=== PATIENT | female | born 1995 | race Caucasian/White ===

== ENCOUNTER 2018-12-14 09:32 | Inpatient (IN) ==
[2018-12-14] MEDS ORDERED: OXYTOCIN 30 UNITS/500 ML BAG IV PRN ×3 (12:07→21:50)
[2018-12-14] MEDS ORDERED: PENICILLIN G POTASSIUM 6 MU in DEXTROSE 5% 250 ML IV STA (12:07)
--- NOTE | 2018-12-14 12:15 | History & Physical Report ---
Date of Service December 14, 2018 Assessment & Plan (1) Prolonged , antepartum: - heart rate tracing category 1 -Jones catheter inserted for cervical ripening -We will start Pitocin per induction protocol -We will start penicillin for positive GBS -Anticipate vaginal delivery (2) Group B Streptococcus carrier state affecting : (3) Supervision of normal first : History of Present Illness Chief Complaint: Induction of labor Primary Care Provider: DANNY Mays The patient is a 23-year-old 1 para 0, with an EDC of 07 December at 41 weeks gestational age who presents today for a postdates induction. The patient has had a benign course her blood type is A-, antibody negative, she received RhoGam at 28 weeks, the patient was hepatitis B negative, rubella immune, she had a normal 1 hour Glucola at 16 weeks with an elevated 1 hour Glucola 28 weeks with a normal 2-hour glucose tolerance test, she had a positive third trimester beta strep culture. 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 Beliefs That Will Affect Care: None marital status: Current Living Situation: Spouse Other Information That Helps Us Care for You: No Feels Safe at Home: Yes Safety Concerns: Feels Safe At This Time Smoking Status: Never smoker Do You Dip or Chew Tobacco: No ; Second Hand Exposure: No ; Hx Alcohol Use: No Hx Substance Use: No Physical Exam Constitutional: WD/WN, vitals as above Respiratory: Auscultation: lungs clear to auscultation bilaterally Cardiovascular: RRR, no murmur, no edema Extremities: no calf tenderness Gastrointestinal (Abdomen): Gravid, vertex, positive heart tones, estimated weight of 8 pounds Genitourinary: Cervix: 180/-2 Procedure note: Patient placed in a dorsolithotomy position. After obtaining verbal consent a cervix is placed. A #22 Jones catheter is inserted into the cervix. Catheter inflated with 30 cc of normal saline. Speculum removed. Patient tolerated the procedure well Results & Data Vital Signs (Past 12 Hours) Vital Signs Temp Pulse Resp BP 12/14/18 11:24 103 H 136/87 12/14/18 10:42 99.5 F 103 H 20 136/87
[2018-12-14] MEDS: LACTATED RINGER'S 1,000 ML IV PRN ×2 (12:22→14:49)
[2018-12-14 12:34] LABS: Hematocrit (blood only) 36.4 % (37-47); Hemoglobin 12.6 g/dL (12.0-16.0); Mean Corpuscular Hemoglobin 33.3 pg (25-34); Mean Corpuscular Volume 96.3 fL (80-100); Platelet Count 228 K/uL (130-400); RDW Standard Deviation 49.1 fL (36.4-46.3); Red Blood Count 3.78 M/uL (4.2-5.4); White Blood Count 10.92 K/uL (4.8-10.8)
[2018-12-14 12:48] LABS: Mean Corpuscular Hgb Conc 34.6 g/dL (32-36)
[2018-12-14] MEDS ORDERED: ePHEDrine sulfate 50 MG/ML AMP ONE (14:04)
[2018-12-14] MEDS ORDERED: BUPIVACAINE 0.25% 30 ML VIAL ONE ×2 (14:04→17:20)
[2018-12-14] MEDS ORDERED: fentaNYL 2MCG/ML ROPIV 1.25MG/ML 100 ML BAG EPI ONE (14:05)
[2018-12-14] MEDS ORDERED: fentaNYL citrate 100 MCG/2 ML VIAL ONE (14:05)
[2018-12-14] MEDS ORDERED: NALOXONE HCL 1 MG in SODIUM CHLORIDE 0.9% 1000ML 1,000 ML IV PRN (14:58)
[2018-12-14] MEDS ORDERED: fentaNYL 2MCG/ML ROPIV 1.25MG/ML 100 ML BAG EPI PRN (14:58)
[2018-12-14] MEDS ORDERED: ONDANSETRON INJ 2 MG/ML 2 ML VIAL IV PRN (14:58)
[2018-12-14] MEDS ORDERED: DiphenhydrAMINE HCL 50 MG/ML VIAL IV PRN (14:58)
[2018-12-14] MEDS ORDERED: ePHEDrine sulfate 50 MG/ML AMP IV PRN (14:58)
[2018-12-14] MEDS ORDERED: NALBUPHINE HCL INJ 10 MG/ML AMP IV PRN (14:58)
[2018-12-14] MEDS ORDERED: NALOXONE HCL 0.4 MG/1 ML VIAL/CARP IV PRN (14:58)
--- NOTE | 2018-12-14 15:01 | Anesthesiology Consultation ---
Date of Service December 14, 2018 Assessment & Plan (1) Encounter for pre-operative examination: Chart Review Chart Review: Patient NOT seen in Pre Admission Testing and Acceptable Risk for Labor Epidural Consults Requested none History Height/Weight Height: 5 ft 7 in Weight: 76.204 kg Allergies Allergy/AdvReac Type Severity Reaction Status Date / Time No Known Allergies Allergy Verified 12/13/18 09:26 Medications Home Medications Medication Instructions Recorded Confirmed Last Taken vit-iron fum-folic ac 1 tab PO DAILY 12/14/18 12/14/18 12/14/18 08:00 [ Vitamin] Active Medications Generic Name Dose Route Start Last Admin Trade Name Freq PRN Reason Stop Dose Admin Lactated Ringer's 1,000 mls @ 125 mls/hr 12/14/18 12:07 12/14/18 14:49 Lr IV 12/16/18 12:06 125 mls/hr .Q8H PRN Administration L&D Protocol Protocol Oxytocin 30 units in 500 mls @ 7 mls/hr 12/14/18 12:09 12/14/18 14:41 Pitocin IV 12/16/18 12:08 0.42 units/hr .Q24H PRN 7 mls/hr Labor Induction/Augmentation Titration Protocol 0.42 UNITS/HR Past Medical History Medical History History of varicella vaccination Exercise / Class Metabolic Activity II 4-5 Yardwork/Stairs/Walk up hill Past Family History Family History Grandfather No problems noted. Father Hypertension Grandmother (Maternal) Ovarian cancer Mother Thyroid disease Past Surgical History Surgical History No pertinent past surgical history Past Anesthesia History No Hx of Anesthesia Complications and No Family Hx of Anesthesia Complications History of PONV No Hx of PONV and No Hx of Motion Sickness Social History Smoking Status: Never smoker Do You Dip or Chew Tobacco: No Hx Alcohol Use: No Hx Substance Use: No substance use type: does not use Physical Exam Vital Signs Last Vital Signs Temp 36.9 C 12/14/18 14:25 Pulse 89 12/14/18 14:54 Resp 18 12/14/18 14:25 BP 132/79 12/14/18 14:52 Pulse Ox 100 12/14/18 14:54 Testing Laboratory Results 12/14/18 12:17
[2018-12-14] MEDS: PENICILLIN G POTASSIUM 3 MU in DEXTROSE 5% 100 ML IV PRN ×2 (16:19→20:32)
--- NOTE | 2018-12-14 19:23 | Labor Progress Brief Note ---
Date of Service December 14, 2018 Subjective Reason For Note: Routine Evaluation Comfortable with epidural, pressure with contractions Assessment & Plan (1) Prolonged , antepartum: - tracing Cat II - will begin 2nd stage Physical Exam Genitourinary: Complete/(+)1-(+)2, AROM clear Results & Data Vital Signs (Past 12 Hours) Vital Signs Temp Pulse Resp BP Pulse Ox 12/14/18 19:16 119 H 100 12/14/18 19:11 97 H 98 12/14/18 19:06 88 99 12/14/18 19:02 89 126/66 12/14/18 19:01 83 99 12/14/18 18:56 92 H 99 12/14/18 18:51 99.9 F H 84 20 136/65 99 12/14/18 18:44 90 98 12/14/18 18:39 83 98 12/14/18 18:34 78 99 12/14/18 18:32 81 120/59 L 12/14/18 18:29 81 98 12/14/18 18:24 89 99 12/14/18 18:19 89 99 12/14/18 18:17 86 121/62 12/14/18 18:14 83 99 12/14/18 18:09 87 99 12/14/18 18:04 86 100 12/14/18 18:00 115 H 156/60 H 12/14/18 17:59 89 99 12/14/18 17:58 93 H 120/61 12/14/18 17:56 90 123/66 12/14/18 17:54 86 127/65 98 12/14/18 17:52 93 H 130/67 12/14/18 17:50 100 H 123/71 12/14/18 17:49 100 H 99 12/14/18 17:48 90 125/78 12/14/18 17:46 86 121/65 12/14/18 17:44 90 133/67 99 12/14/18 17:42 81 112/80 12/14/18 17:40 90 115/65 12/14/18 17:39 89 98 12/14/18 17:38 101 H 121/70 12/14/18 17:36 90 127/68 12/14/18 17:34 78 123/70 99 12/14/18 17:32 90 122/67 12/14/18 17:30 91 H 125/69 12/14/18 17:29 89 98 12/14/18 17:28 93 H 124/68 12/14/18 17:27 99.0 F 22 12/14/18 17:25 90 139/75 12/14/18 17:24 89 98 12/14/18 17:23 96 H 123/72 12/14/18 17:19 86 98 12/14/18 17:14 100 H 99 12/14/18 17:09 82 99 12/14/18 17:08 87 127/84 12/14/18 17:04 96 H 98 12/14/18 16:59 86 99 12/14/18 16:54 85 99 12/14/18 16:52 92 H 128/67 12/14/18 16:49 83 99 12/14/18 16:44 83 98 12/14/18 16:39 72 98 12/14/18 16:37 82 119/62 12/14/18 16:34 71 98 12/14/18 16:29 68 98 12/14/18 16:24 89 99 12/14/18 16:23 102 H 119/80 12/14/18 16:19 90 99 12/14/18 16:14 77 100 12/14/18 16:09 73 99 12/14/18 16:06 87 124/74 12/14/18 16:04 93 H 20 117/71 99 12/14/18 16:02 92 H 124/72 12/14/18 16:00 85 128/73 12/14/18 15:59 80 100 12/14/18 15:58 94 H 125/77 12/14/18 15:56 75 125/75 12/14/18 15:54 83 127/74 98 12/14/18 15:52 88 127/74 12/14/18 15:50 79 123/67 12/14/18 15:49 83 100 12/14/18 15:48 84 123/73 12/14/18 15:46 85 124/71 12/14/18 15:44 90 131/72 99 12/14/18 15:42 81 135/77 12/14/18 15:40 87 113/64 12/14/18 15:39 92 H 99 12/14/18 15:38 85 117/64 12/14/18 15:36 99.0 F 82 16 126/65 12/14/18 15:34 84 129/68 99 12/14/18 15:32 79 132/69 12/14/18 15:30 86 123/64 12/14/18 15:29 95 H 100 12/14/18 15:28 89 126/68 12/14/18 15:26 75 112/68 12/14/18 15:24 93 H 118/70 99 12/14/18 15:22 93 H 117/68 12/14/18 15:20 96 H 122/76 12/14/18 15:19 79 100 12/14/18 15:18 88 117/71 12/14/18 15:16 72 125/78 12/14/18 15:14 86 99 12/14/18 15:09 81 100 12/14/18 15:06 80 137/78 12/14/18 15:04 90 100 12/14/18 14:59 79 100 12/14/18 14:54 89 100 12/14/18 14:52 77 132/79 12/14/18 14:49 76 99 12/14/18 14:44 72 100 12/14/18 14:43 78 133/82 12/14/18 14:39 92 H 99 12/14/18 14:31 78 129/82 12/14/18 14:25 98.4 F 18 12/14/18 11:35 99.5 F 18 12/14/18 11:24 103 H 136/87 12/14/18 10:42 99.5 F 103 H 20 136/87
--- NOTE | 2018-12-14 21:31 | Anesthesia Procedure Note ---
Date of Service December 14, 2018 Anesthesia Post Epidural Note Vital Signs Vital Signs: Temp Pulse Resp BP Pulse Ox 36.9 C 101 H 18 131/70 90 12/14/18 19:00 12/14/18 21:23 12/14/18 19:00 12/14/18 21:23 12/14/18 21:21 Pain Intensity Abdomen: Pain Intensity: 0 Notes Mental Status: alert / awake / arousable and participated in evaluation Patient Amnestic to Procedure: No Nausea / Vomiting: adequately controlled Pain: adequately controlled Airway Patency, RR, SpO2: stable & adequate BP & HR: stable & adequate Hydration State: stable & adequate Neuraxial Anesthesia: was administered and sensory block is resolving Anesthetic Complications: no major complications apparent and Pt Satisfied with anesthetic care Epidural: Removed without complications and With tip intact
--- NOTE | 2018-12-14 21:33 | Delivery Summary ---
Vaginal Delivery Summary Date of Service December 14, 2018 Findings: Viable female infant with Apgars of 8 and 9. Baby delivered by vacuum extraction for profuse vaginal maternal bleeding. Baby delivered over midline episiotomy, with third-degree extension. Placenta delivered spontaneously. Left sulcus tear noted. Lacerations, extensions, and midline episiotomy repaired in routine fashion. Estimated blood loss 500 cc. Labor Note: The patient is a 23-year-old 1 para 0, with an EDC of 07 December at 41 weeks gestational age who presents today for a postdates induction. The patient has had a benign course her blood type is A-, antibody negative, she received RhoGam at 28 weeks, the patient was hepatitis B negative, rubella immune, she had a normal 1 hour Glucola at 16 weeks with an elevated 1 hour Glucola 28 weeks with a normal 2-hour glucose tolerance test, she had a positive third trimester beta strep culture. Because of the positive GBS status, the patient was started on penicillin, 6,000,000 unit loading dose, and 3,000,000 units every 4 hours until delivery. Upon admission the patient was 1 cm dilated 80% effaced and -2 station. A #22 Jones catheter was threaded into the cervix and insufflated with 30 cc of normal saline. Pitocin per induction protocol was initiated. Patient progressed into a regular labor pattern. The cervical Jones dislodged spontaneously and the patient was found to be 4 cm. Patient became uncomfortable, anesthesia was consulted and an epidural was placed. The patient progressed to full dilatation. She had artificial rupture of her membranes, with clear fluid. Patient began her second stage. She pushed for approximately hour and half and then began to develop profuse vaginal bleeding from a presumed vaginal tear. Because of the heavy vaginal bleeding, verbal consent was obtained for vacuum extraction. Over the next 3 contractions the baby was delivered over a midline episiotomy with third-degree extension. Cord was clamped and cut. Cord gases and cord blood samples were obtained. Placenta delivered spontaneously. Inspection of the perineum showed a left sulcus tear with active bleeding. The sulcus tear was repaired with running and interrupted 2-0 Vicryl sutures. Third-degree extension was noted. The sphincter muscle was reapproximated with 3 layers of 2-0 Vicryl. The episiotomy was then repaired with 4-0 and 2-0 Vicryl in a routine fashion. Estimated blood loss was 500 cc. Sponge and needle count was correct.
[2018-12-14 21:41] LABS: Base Excess Cord Arterial Bld -5.8 mEq/L (-9-1.8); CO2 Cord Arterial Blood 57 mmHg (39.1-73.5); HCO3 Cord Arterial Blood 23 mmol/L (19.7-28.5); PO2 Cord Arterial Blood 20.7 % (4.1-31.7); pH Cord Arterial Blood 7.22 (7.1-7.38)
[2018-12-14 21:45] LABS: Base Excess Cord Venous Blood -4.4 mEq/L (-7.7-1.9); Cord Venous Blood HCO3 22 mmol/L (18.4-26.8); Cord Venous Blood PCO2 47 mmHg (30.4-57.2); Cord Venous Blood PO2 34 mmHg (14.1-43.3); O2 Saturation Cord Venous Bld 71.3 % (<68); Oxygen Sat Cord Arterial Blood < 60.0 % (<60)
[2018-12-14] MEDS ORDERED: BENZOCAINE 20% AER SPR 82.5 GM CAN EXT PRN (21:50)
[2018-12-14] MEDS ORDERED: DIPHTHERIA/TETANUS/PERTUSSIS 0.5 ML SYR/VIAL IM ONE (21:50)
[2018-12-14] MEDS ORDERED: BISACODYL 10 MG SUPP PR PRN (21:50)
[2018-12-14] MEDS ORDERED: ACETAMINOPHEN 325 MG TAB PO PRN (21:50)
[2018-12-14] MEDS ORDERED: ACETAMINOPHEN W/CODEINE #3 1 TAB PO PRN (21:50)
[2018-12-14] MEDS ORDERED: SUPERCREAM 0.870% 15 GM JAR EXT PRN (21:50)
[2018-12-14] MEDS ORDERED: HYDROCORTISONE ACETATE 25 MG SUPP PR PRN (21:50)
[2018-12-14] MEDS: IBUPROFEN 600 MG TAB PO PRN (23:17)
[2018-12-15] MEDS: IBUPROFEN 600 MG TAB PO PRN ×3 (05:36→21:23)
--- NOTE | 2018-12-15 07:02 | Obstetrical Progress Note ---
Date of Service <Baldomero Montielmargaret - Last Filed: 12/15/18 07:04> December 15, 2018 Assessment & Plan <Baldomero MontielnDO - Last Filed: 12/15/18 07:04> (1) Prolonged , antepartum: -PPD#1 -Vitals reviewed, WNL (Tmax 37) - GBS +, Blood Type A- - ?Rhogam if needed. - Clinically stable. - Feels well today. Eating well, voiding well, ambulating well. - Pain well controlled. - Routine post- care - Patient had a 3rd degree laceration during delivery that was repaired in the usual fashion. - Roughly 500cc blood loss noted during delivery, will monitor Hgb (labs pending this AM). - Questions answered this AM. Day #:: 1 Subjective <Baldomero Montielmargaret - Last Filed: 12/15/18 07:04> Ambulation: ambulating normally Voiding: no voiding problems Passing Gas:: No Diet Tolerance:: regular diet Lochia:: Moderate Feeding Type:: breast feeding Current Pain Level(1-10): 1 (improves with medication) Patient is a 23 PPD#1. Patient states that she is feeling well today and that her pain is well controlled. She has no other complaints at this time. Constitutional: no fever and no chills Respiratory: no cough, no dyspnea and no wheezing Cardiovascular: no chest pain, no dyspnea, no palpitations, no edema and no calf pain Breast: no breast pain Gastrointestinal: no abdominal pain, no nausea and no vomiting Genitourinary (female): no dysuria and no difficulty urinating Neurologic: no headache(s) Physical Exam <Baldomero Montielmargaret Mally Last Filed: 12/15/18 07:04> Constitutional WD/WN, vitals as above Respiratory normal respiratory effort, lungs clear to auscultation Cardiovascular Rate/Rhythm: regular rate and regular rhythm Heart Sounds: normal S1 and normal S2; no click, no gallop, no murmur and no cardiac rub Extremities: no calf tenderness and no edema Gastrointestinal (Abdomen) Inspection/Auscultation: abdomen normal to inspection and normal bowel sounds Percussion/Palpation: abdomen soft; abdomen nontender Genitourinary OB Exam Abdomen: + fundal height Fundus: + firm and + relation to umbilicus (3cm below); not tender and not boggy Results & Data <Baldomero Montieln, DO - Last Filed: 12/15/18 07:04> Vital Signs (Past 12 Hours) Vital Signs Temp Pulse Pulse Resp BP BP Pulse Ox 12/15/18 04:30 37 C 79 18 115/75 12/14/18 23:50 37 C 78 18 112/74 12/14/18 23:31 37.0 C 117 H 18 127/63 12/14/18 23:23 117 H 117/62 12/14/18 23:08 105 H 16 132/62 12/14/18 22:53 89 135/61 12/14/18 22:38 112 H 137/60 12/14/18 22:23 108 H 18 129/71 12/14/18 22:08 37.0 C 93 H 18 113/61 12/14/18 21:53 109 H 18 123/60 12/14/18 21:46 101 H 16 122/71 12/14/18 21:23 101 H 16 131/70 12/14/18 21:21 89 90 12/14/18 21:16 88 99 12/14/18 21:11 93 H 18 99 12/14/18 21:06 96 H 100 12/14/18 21:01 114 H 97 12/14/18 21:00 113 H 92 12/14/18 20:57 36.9 C 78 18 122/70 12/14/18 20:56 80 100 12/14/18 20:54 111 H 93 12/14/18 20:51 105 H 98 12/14/18 20:46 121 H 99 12/14/18 20:42 96 H 129/74 12/14/18 20:41 107 H 99 12/14/18 20:36 105 H 95 12/14/18 20:31 101 H 100 12/14/18 20:28 92 H 127/68 12/14/18 20:26 91 H 99 12/14/18 20:21 87 99 12/14/18 20:16 96 H 98 12/14/18 20:14 111 H 118/89 12/14/18 20:11 115 H 95 12/14/18 20:06 102 H 99 12/14/18 20:01 105 H 98 12/14/18 19:57 101 H 127/69 12/14/18 19:56 127 H 100 12/14/18 19:51 117 H 99 12/14/18 19:46 119 H 95 12/14/18 19:42 111 H 132/75 12/14/18 19:41 138 H 99 12/14/18 19:36 127 H 97 12/14/18 19:31 129 H 98 12/14/18 19:26 128 H 99 12/14/18 19:21 135 H 99 12/14/18 19:16 119 H 100 12/14/18 19:11 97 H 98 12/14/18 19:06 88 99 12/14/18 19:02 89 126/66 12/14/18 19:01 83 99 12/14/18 19:00 36.9 C 18 Laboratory Results Abnormal lab results 12/14/18 12/14/18 Range/Units 12:17 20:53 WBC 10.92 H (4.8-10.8) K/uL RBC 3.78 L (4.2-5.4) M/uL Hct 36.4 L (37-47) % RDW Std Deviation 49.1 H (36.4-46.3) fL Cord VBG O2 Sat 71.3 H (<68) % Medications Administered Current Inpatient Medications Acetaminophen (Tylenol) 650 mg PO Q6H PRN PRN Reason: Pain/MOELLER/Fever Stop: 01/13/19 21:49 Acetaminophen/Codeine Phosphate (Tylenol W/Codeine #3) 1 - 2 tab PO Q4H PRN PRN Reason: Pain not controlled with... Stop: 01/13/19 21:49 Benzocaine (Dermoplast Pain Relieving [place]) 1 appln EXT PRN PRN PRN Reason: Perineal Discomfort Stop: 01/13/19 21:49 Bisacodyl (Dulcolax) 5 mg PO 1999 [facility] Stop: 12/15/18 20:01 Bisacodyl (Dulcolax) 10 mg [place] DAILY PRN PRN Reason: No BM on 2nd post- day Stop: 01/13/19 21:49 Cocaine HCl (Supercream 0.870%) 1 gm EXT BID PRN PRN Reason: Hemorrhoidal Inflammation Stop: 12/28/18 21:49 Docusate Sodium (Colace) 100 mg PO DAILY@ [facility] Stop: 01/14/19 07:59 Hydrocortisone (Anusol Hc) 25 mg [place] BID PRN PRN Reason: Hemorrhoidal Inflammation Stop: 01/13/19 21:49 Oxytocin (Pitocin) 30 units in 500 mls @ 333.333 mls/hr IV .Q1H30M PRN; Protocol PRN Reason: Bleeding Control Stop: 01/13/19 21:49 Ibuprofen (Motrin) 600 mg PO Q4H PRN PRN Reason: Pain/MOELLER/Cramping/Fever Stop: 01/13/19 21:25 Last Admin: 12/15/18 05:36 Dose: 600 mg Documented by: Prentayler Multivit/Net M[employer] Developer/Iron/Folic Ac ( Vitamin) 1 tab PO DAILY@08 [facility] Stop: 01/14/19 07:59 Senna/Docusate Sodium (Senokot S) 1 tab PO QAM [facility] Stop: 01/14/19 08:59 <Ino Sutton Jr, MD, FACOG - Last Filed: 12/15/18 07:46> Co-Signing Physician Notes Resident Physician Supervision Note: I was present with Dr. Gardner during the history and exam. I discussed the case with the resident and agree with the findings and plan as documented in the note. Any exceptions or clarifications are listed here: Discussed delivery and care. Documented By: Ino Sutton Jr, MD, FACOG Resident Activity Tracking <Baldomero Bonilla DO - Last Filed: 12/15/18 07:04> Resident Involvement: Resident Care Provided Care Provided: OB Delivery
[2018-12-15 07:20] LABS: Hematocrit (blood only) 28.5 % (37-47); Hemoglobin 9.7 g/dL (12.0-16.0); Mean Corpuscular Volume 96.9 fL (80-100); Mean Platelet Volume 10.3 fL (7.4-10.4); Platelet Count 210 K/uL (130-400); RDW Coefficient of Variation 14.2 % (11.5-14.5); RDW Standard Deviation 50.6 fL (36.4-46.3); Red Blood Count 2.94 M/uL (4.2-5.4); White Blood Count 16.84 K/uL (4.8-10.8)
[2018-12-15] MEDS: PRENATAL VITAMIN 1 TAB PO SCH (08:37)
[2018-12-15] MEDS: DOCUSATE SODIUM/SENNA 50/8.6MG TAB PO SCH (08:37)
[2018-12-15] MEDS: DOCUSATE SODIUM 100 MG CAP PO SCH ×2 (08:37→21:23)
[2018-12-15] MEDS ORDERED: BISACODYL 5 MG TABEC PO SCH (20:00)
--- NOTE | 2018-12-16 06:27 | Obstetrical Progress Note ---
Date of Service <Baldomero Bonilla DO - Last Filed: 12/16/18 06:28> December 16, 2018 Assessment & Plan <Baldomero Bonilla DO - Last Filed: 12/16/18 06:28> (1) Prolonged , antepartum: -PPD#2 -Vitals reviewed, WNL (Tmax 37.1) - GBS +, Blood Type A- - Clinically stable. - Feels well today. Eating well, voiding well, ambulating well. - Pain well controlled. - Routine post- care - Patient had a 3rd degree laceration during delivery that was repaired in the usual fashion. - Questions answered this AM. - Counseled on discharge, follow up, and medications. Day #:: 2 Subjective <Baldomero MontielnDO - Last Filed: 12/16/18 06:28> Ambulation: ambulating normally Voiding: no voiding problems Passing Gas:: Yes Diet Tolerance:: regular diet Lochia:: Moderate Feeding Type:: breast feeding Current Pain Level(1-10): 2 (improves with analgesics) Patient is a 23 PPD#2. Patient states that she is feeling well today and that her pain is well controlled. She has no other complaints at this time. Constitutional: no fever and no chills Respiratory: no cough, no dyspnea and no wheezing Cardiovascular: no chest pain, no dyspnea, no palpitations, no edema and no calf pain Breast: + breast pain (nipple pain with breast feeding) Gastrointestinal: no abdominal pain, no nausea and no vomiting Genitourinary (female): no dysuria and no difficulty urinating Neurologic: no headache(s) Physical Exam <Baldomero Montielmargaret DO Bal Last Filed: 12/16/18 06:28> Constitutional WD/WN, vitals as above Respiratory normal respiratory effort, lungs clear to auscultation Cardiovascular Rate/Rhythm: regular rate and regular rhythm Heart Sounds: normal S1 and normal S2; no click, no gallop, no murmur and no cardiac rub Extremities: no calf tenderness and no edema Gastrointestinal (Abdomen) Inspection/Auscultation: abdomen normal to inspection and normal bowel sounds Percussion/Palpation: abdomen soft; abdomen nontender Genitourinary OB Exam Abdomen: + fundal height Fundus: + firm and + relation to umbilicus (2cm below); not tender and not boggy Results & Data <Baldomero Montieln, DO - Last Filed: 12/16/18 06:28> Vital Signs (Past 12 Hours) Vital Signs Temp Pulse Resp BP Pulse Ox 12/16/18 01:16 36.6 C 84 16 109/67 97 12/15/18 19:10 37.1 C 88 18 113/73 Laboratory Results Abnormal lab results 12/15/18 Range/Units 06:35 WBC 16.84 H (4.8-10.8) K/uL RBC 2.94 L (4.2-5.4) M/uL Hgb 9.7 L (12.0-16.0) g/dL Hct 28.5 L (37-47) % RDW Std Deviation 50.6 H (36.4-46.3) fL Medications Administered Current Inpatient Medications Acetaminophen (Tylenol) 650 mg PO Q6H PRN PRN Reason: Pain/MOELLER/Fever Stop: 01/13/19 21:49 Acetaminophen/Codeine Phosphate (Tylenol W/Codeine #3) 1 - 2 tab PO Q4H PRN PRN Reason: Pain not controlled with... Stop: 01/13/19 21:49 Benzocaine (Dermoplast Pain Relieving [place]) 1 appln EXT PRN PRN PRN Reason: Perineal Discomfort Stop: 01/13/19 21:49 Bisacodyl (Dulcolax) 10 mg [place] DAILY PRN PRN Reason: No BM on 2nd post- day Stop: 01/13/19 21:49 Cocaine HCl (Supercream 0.870%) 1 gm EXT BID PRN PRN Reason: Hemorrhoidal Inflammation Stop: 12/28/18 21:49 Docusate Sodium (Colace) 100 mg PO DAILY@08,21 [facility] Stop: 01/14/19 07:59 Last Admin: 12/15/18 21:23 Dose: 100 mg Documented by: Hydrocortisone (Anusol Hc) 25 mg [place] BID PRN PRN Reason: Hemorrhoidal Inflammation Stop: 01/13/19 21:49 Oxytocin (Pitocin) 30 units in 500 mls @ 333.333 mls/hr IV .Q1H30M PRN; Protocol PRN Reason: Bleeding Control Stop: 01/13/19 21:49 Ibuprofen (Motrin) 600 mg PO Q4H PRN PRN Reason: Pain/MOELLER/Cramping/Fever Stop: 01/13/19 21:25 Last Admin: 12/15/18 21:23 Dose: 600 mg Documented by: Maria Eugeniaat Multivit/[place]/Iron/Folic Ac ( Vitamin) 1 tab PO DAILY@08 [facility] Stop: 01/14/19 07:59 Last Admin: 12/15/18 08:37 Dose: 1 tab Documented by: Senna/Docusate Sodium (Senokot S) 1 tab PO QAM [facility] Stop: 01/14/19 08:59 Last Admin: 12/15/18 08:37 Dose: 1 tab Documented by: <Cheryl Burgos MD, FACOG - Last Filed: 12/16/18 07:43> Co-Signing Physician Notes Resident Physician Supervision Note: I interviewed and examined the patient. Discussed with Dr. Bonilla and agree with findings and plan as documented in the note. Any exceptions or clarifications are listed here: Doing well. Routine care. d/c today , instructions given. Documented By: Cheryl Burgos MD, FACOG Resident Activity Tracking <Baldomero Bonilla DO - Last Filed: 12/16/18 06:28> Resident Involvement: Resident Care Provided Care Provided: OB Delivery
[2018-12-16 06:35] LABS: Hematocrit (blood only) 26.7 % (37-47)
[2018-12-16] MEDS: DOCUSATE SODIUM 100 MG CAP PO SCH (08:11)
[2018-12-16] MEDS: PRENATAL VITAMIN 1 TAB PO SCH (08:11)
[2018-12-16] MEDS: DOCUSATE SODIUM/SENNA 50/8.6MG TAB PO SCH (08:18)
--- NOTE | 2018-12-18 09:12 | Discharge Summary ---
Date of Service December 18, 2018 Admission HPI Per Admitting Provider The patient is a 23-year-old 1 para 0, with an EDC of 07 December at 41 weeks gestational age who presents today for a postdates induction. The patient has had a benign course her blood type is A-, antibody negative, she received RhoGam at 28 weeks, the patient was hepatitis B negative, rubella immune, she had a normal 1 hour Glucola at 16 weeks with an elevated 1 hour Glucola 28 weeks with a normal 2-hour glucose tolerance test, she had a positive third trimester beta strep culture. Admission Exam (Per Admitting) Constitutional WD/WN, vitals as above Respiratory Auscultation: lungs clear to auscultation bilaterally Cardiovascular RRR, no murmur, no edema Extremities: no calf tenderness Genitourinary 1 cm / 80% effaced/-2 station Discharge Data Consultations 12/14/18 12:07 Consult Anesthesiology Stat Hospital Course (1) Prolonged , antepartum: Because of the positive GBS status, the patient was started on penicillin, 6,000,000 unit loading dose, and 3,000,000 units every 4 hours until delivery. Upon admission the patient was 1 cm dilated 80% effaced and -2 station. A #22 Jones catheter was threaded into the cervix and insufflated with 30 cc of normal saline. Pitocin per induction protocol was initiated. Patient progressed into a regular labor pattern. The cervical Jones dislodged spontaneously and the patient was found to be 4 cm. Patient became uncomfortable, anesthesia was co nsulted and an epidural was placed. The patient progressed to full dilatation. She had artificial rupture of her membranes, with clear fluid. Patient began her second stage. She pushed for approximately hour and half and then began to develop profuse vaginal bleeding from a presumed vaginal tear. Because of the heavy vaginal bleeding, verbal consent was obtained for vacuum extraction. Over the next 3 contractions the baby was delivered over a midline episiotomy with third-degree extension. Cord was clamped and cut. Cord gases and cord blood samples were obtained. Placenta delivered spontaneously. Inspection of the perineum showed a left sulcus tear with active bleeding. The sulcus tear was repaired with running and interrupted 2-0 Vicryl sutures. Third-degree extension was noted. The sphincter muscle was reapproximated with 3 layers of 2-0 Vicryl. The episiotomy was then repaired with 4-0 and 2-0 Vicryl in a routine fashion. Estimated blood loss was 500 cc. Sponge and needle count was correct. During the the patient did well H&H came back at 927 which was consistent with the blood loss from the delivery. The patient was discharged home on the second day with routine discharge instructions. She will follow-up in the office in 6 weeks time for a post check, but as always she is been instructed to call with any questions p andrialems or difficulties.
== END 2018-12-16 15:35 | disposition home or self-care (01) | DRG 768 ==
LOC: 4S1 11:14 → 4S2 23:45

== ENCOUNTER 2021-09-03 03:54 | Inpatient (IN) ==
[2021-09-03] MEDS ORDERED: OXYTOCIN 30 UNITS/500 ML BAG IV PRN ×3 (08:15→14:57)
[2021-09-03 08:43] LABS: Hematocrit (blood only) 37.1 % (37-47); Hemoglobin 12.9 g/dL (12.0-16.0); Mean Corpuscular Hemoglobin 33.5 pg (25-34); Mean Corpuscular Hgb Conc 34.8 g/dL (32-36); Mean Corpuscular Volume 96.4 fL (80-100); Mean Platelet Volume 10.8 fL (7.4-10.4); Platelet Count 198 K/uL (130-400); RDW Coefficient of Variation 13.6 % (11.5-14.5); RDW Standard Deviation 47.6 fL (36.4-46.3); Red Blood Count 3.85 M/uL (4.2-5.4)
[2021-09-03] MEDS: LACTATED RINGER'S 1,000 ML IV PRN ×2 (09:03→11:01)
[2021-09-03] MEDS ORDERED: FLUoxetine HCL 20 MG CAP PO ONE (09:55)
[2021-09-03] MEDS ORDERED: ePHEDrine sulfate 50 MG/ML AMP ONE (10:22)
[2021-09-03] MEDS ORDERED: fentaNYL citrate 100 MCG/2 ML VIAL ONE (10:23)
[2021-09-03] MEDS ORDERED: BUPIVACAINE 0.25% 30 ML VIAL ONE (10:23)
[2021-09-03] MEDS ORDERED: SODIUM CHLORIDE 0.9% INJ 10 ML VIAL ONE (10:23)
[2021-09-03] MEDS ORDERED: fentaNYL 2MCG/ML ROPIVACAINE 1.25MG/ML 100 ML BAG EPI ONE (10:24)
[2021-09-03] MEDS ORDERED: fentaNYL 2MCG/ML ROPIVACAINE 1.25MG/ML 100 ML BAG EPI PRN (10:50)
[2021-09-03] MEDS ORDERED: ePHEDrine sulfate 50 MG/ML AMP IV PRN (10:50)
[2021-09-03] MEDS ORDERED: diphenhydrAMINE 50 MG/ML VIAL IV PRN (10:50)
[2021-09-03] MEDS ORDERED: NALOXONE HCL 0.4 MG/1 ML VIAL/CARP IV PRN (10:50)
[2021-09-03] MEDS ORDERED: NALOXONE HCL 1 MG in SODIUM CHLORIDE 0.9% 1000ML 1,000 ML IV PRN (10:50)
[2021-09-03] MEDS ORDERED: NALBUPHINE HCL INJ 10 MG/ML AMP IV PRN (10:50)
--- NOTE | 2021-09-03 10:50 | Anesthesiology Consultation ---
Date of Service September 03, 2021 Assessment & Plan ASA ASA3 Proposed Anesthesia Anesthesia Type: Labor Epidural Risk / Benefits Reviewed With: PT / POA / Parent / Guardian, Accepts Plan and Informed Consent Obtained History Height/Weight Height: 5 ft 6 in Weight: 70.76 kg Allergies Allergy/AdvReac Type Severity Reaction Status Date / Time No Known Allergies Allergy Verified 09/03/21 09:35 Medications Home Medications Medication Instructions Recorded Confirmed Last Taken prenat.vits,wesley,fno-uebn-rzrxc 1 tab PO DAILY 02/01/19 09/03/21 09/02/21 08:00 fluoxetine 20 mg capsule 20 mg PO DAILY 01/15/21 09/03/21 09/02/21 08:00 ferrous sulfate 325 mg (65 mg 325 mg PO DAILY 06/24/21 09/03/21 09/02/21 08:00 iron) tablet Active Medications Generic Name Dose Route Start Last Admin Trade Name Freq PRN Reason Stop Dose Admin Oxytocin 30 units in 500 mls @ 3 mls/hr 09/03/21 08:15 09/03/21 09:35 Pitocin IV 09/05/21 08:14 0.18 units/hr .Q24H PRN 3 mls/hr Labor Induction/Augmentation Titration Protocol 0.18 UNITS/HR Lactated Ringer's 1,000 mls @ 125 mls/hr 09/03/21 08:15 09/03/21 10:12 Lr IV 09/05/21 08:14 999 mls/hr .Q8H PRN Infusion L&D Protocol Protocol Past Medical History Medical History History of varicella vaccination Exercise / Class Metabolic Activity II 4-5 Yardwork/Stairs/Walk up hill Past Family History Family History Grandfather No problems noted. Father Hypertension Grandmother (Maternal) Ovarian cancer Mother Thyroid disease Past Surgical History Surgical History S/P wisdom tooth extraction Past Anesthesia History No Hx of Anesthesia Complications and No Family Hx of Anesthesia Complications History of PONV No Hx of PONV and No Hx of Motion Sickness Social History Smoking Status: Never smoker Do You Dip or Chew Tobacco: No Hx Alcohol Use: No Hx Substance Use: No substance use type: does not use Review of Systems denies fever/cough/ colds/ chest pain/ SOB/ JEANNIE denies JEANNIE Physical Exam Vital Signs Last Vital Signs Temp 37.0 C 09/03/21 07:52 Pulse 76 09/03/21 10:43 Resp 18 09/03/21 07:52 BP 117/72 09/03/21 10:08 Pulse Ox 99 09/03/21 10:43 ENMT Mouth: no TMJ abnormality and no dentition abnormality Thyromental Distance: > or= 3.5 Finger Breadths Mallampati Class: II Neck neck extension not limited Respiratory normal respiratory effort; no respiratory distress Auscultation: lungs clear to auscultation bilaterally Cardiovascular Rate/Rhythm: regular rate and regular rhythm Neurologic moves all extremities Psychiatric Orientation: alert and oriented x 3 Testing Laboratory Results 09/03/21 08:23
--- NOTE | 2021-09-03 14:37 | Delivery Summary ---
Vaginal Delivery Summary Date of Service September 03, 2021 Vaginal Delivery Summary Postdates induction COVID-negative group B strep negative patient had a cervical Jones placed by Dr. Vargas last night and Pitocin was started she received an epidural rupture of membranes and then delivered a baby vaginally in occiput anterior position fluid was clear there was a tight nuchal cord that was clamped and cut after delivery of the head mouth and then nares suctioned baby was delivered with gentle traction live female baby did require some initial resuscitation but then responded nicely to this. Placenta was removed with gentle traction IV Pitocin was started uterine tone improved second-degree tear repaired with 3-0 Vicryl spongecounts correct rectal exam negative for defects or sutures estimated blood loss 150 mL
[2021-09-03] MEDS ORDERED: ACETAMINOPHEN 325 MG TAB PO PRN (14:57)
[2021-09-03] MEDS ORDERED: BENZOCAINE 20% AER SPR 82.5 GM CAN EXT PRN (14:57)
[2021-09-03] MEDS ORDERED: HYDROCORTISONE ACETATE 25 MG SUPP PR PRN (14:57)
[2021-09-03] MEDS ORDERED: bisacodyL 10 MG SUPP PR PRN (14:57)
[2021-09-03] MEDS ORDERED: oxyCODONE/ACETAMINOPHEN 5mg/325mg TAB PO PRN (14:57)
[2021-09-03 15:00] LABS: Cord Venous Blood HCO3 27 mmol/L (18.4-26.8); Cord Venous Blood PCO2 56 mmHg (30.4-57.2); Cord Venous Blood PO2 17 mmHg (14.1-43.3)
[2021-09-03 15:04] LABS: Base Excess Cord Arterial Bld -0.6 mEq/L (-9-1.8); CO2 Cord Arterial Blood 66 mmHg (39.1-73.5); HCO3 Cord Arterial Blood 29 mmol/L (19.7-28.5); PO2 Cord Arterial Blood 11 mmHg (4.1-31.7); pH Cord Arterial Blood 7.25 (7.1-7.38)
[2021-09-03 15:07] LABS: O2 Saturation Cord Venous Bld < 60.0 % (<68); Oxygen Sat Cord Arterial Blood < 60.0 % (<60)
--- NOTE | 2021-09-03 16:38 | Anesthesia Procedure Note ---
Date of Service September 03, 2021 Anesthesia Post Epidural Note Vital Signs Vital Signs: Temp Pulse Resp BP Pulse Ox 36.7 C 64 18 112/58 L 97 09/03/21 15:10 09/03/21 16:30 09/03/21 16:10 09/03/21 16:30 09/03/21 14:23 Notes Mental Status: alert / awake / arousable and participated in evaluation Patient Amnestic to Procedure: Yes Nausea / Vomiting: adequately controlled Pain: adequately controlled Airway Patency, RR, SpO2: stable & adequate BP & HR: stable & adequate Hydration State: stable & adequate Anesthetic Complications: no major complications apparent and Pt Satisfied with anesthetic care
[2021-09-03] MEDS: DOCUSATE SODIUM 100 MG CAP PO SCH (20:38)
[2021-09-03] MEDS: IBUPROFEN 600 MG TAB PO PRN (20:38)
[2021-09-04] MEDS: IBUPROFEN 600 MG TAB PO PRN (03:28)
--- NOTE | 2021-09-04 05:43 | Obstetrical Progress Note ---
Date of Service <Bradley Alba MD - Last Filed: 09/04/21 06:57> September 04, 2021 Assessment & Plan <Bradley Alba MD - Last Filed: 09/04/21 06:57> (1) Vaginal delivery: 26 yo now PPD1 from at 40wk1d -Discharge to home today -Vitals reviewed- HDS, afebrile -Blood type A-, baby Rh- -F/u in 6 weeks with OB <Mitchel Sharp MD, FACOG - Last Filed: 09/04/21 07:09> (1) Vaginal delivery: Subjective <Bradley Alba MD - Last Filed: 09/04/21 06:57> Ambulation: ambulating normally Voiding: no voiding problems Passing Gas:: Yes Diet Tolerance:: regular diet Lochia:: Small Feeding Type:: breast feeding Current Pain Level(1-10): 0 Pt doing well overall, no acute complaints or distress. Pain well controlled with medication. Would like to go home today. Review of Systems Denies fever/chills. Denies dyspnea, cough. Denies chest pain. Denies breast pain or discharge. Denies dysuria. Denies headache. Denies back pain. Physical Exam <Bradley Alba MD - Last Filed: 09/04/21 06:57> General: Alert, oriented, no acute distress Cardiac: Regular rate and rhythm, normal S1, S2. No murmurs appreciated. Respiratory: Clear to auscultation b/l with good air flow entry, symmetric chest rise and fall. No wheezes or crackles. No increased work of breathing or accessory muscle use Abdomen: Soft, nontender, nondistended. Fundus firm and palpable at 2 cm below umbilicus. No guarding or rebound. Skin: No rashes or lesions Extremities: Warm, dry, well-perfused with capillary refill <2s b/l. No lower extremity edema, erythema, swelling or calf tenderness b/l. Results & Data ([facility]) <Bradley Alba MD - Last Filed: 09/04/21 06:57> Vital Signs (Past 12 Hours) Vital Signs Temp Pulse Resp BP BP Pulse Ox 05/27/22 03:26 36.7 C 62 16 104/66 99 09/03/21 23:07 36.8 C 67 16 100/58 L 95 09/03/21 19:01 37 C 70 16 103/59 L 95 <Mitchel Sharp MD, FACOG - Last Filed: 09/04/21 07:09> Co-Signing Physician Notes Resident Physician Supervision Note: I interviewed and examined the patient. Discussed with Dr. Alba and agree with findings and plan as documented in the note. Any exceptions or clarifications are listed here: [None] Documented By: Mitchel Sharp MD, FACOG Resident Activity Tracking <Bradley Alba MD - Last Filed: 09/04/21 06:57> Resident Involvement: Resident Care Provided Care Provided: OB Delivery
[2021-09-04] MEDS ORDERED: PRENATAL VITAMIN 1 TAB PO SCH (08:00)
[2021-09-04] MEDS: DOCUSATE SODIUM 100 MG CAP PO SCH (08:52)
[2021-09-04] MEDS ORDERED: NON-FORMULARY MEDICATION (Prenat.Vits,Cal,Min-Iron-Folic tablet) PO SCH (09:00)
[2021-09-04] MEDS ORDERED: FLUoxetine HCL 20 MG CAP PO SCH (09:00)
[2021-09-04] MEDS ORDERED: DIPHTHERIA/TETANUS/PERTUSSIS 0.5 ML SYR/VIAL IM ONE (09:00)
[2021-09-04] MEDS ORDERED: bisacodyL 5 MG TABEC PO SCH (20:00)
== END 2021-09-04 16:58 | disposition home or self-care (01) | DRG 807 ==
LOC: 4S1 07:30 → 4E2 17:55
DX: Z3A.40 40 weeks gestation of pregnancy; O48.0 Post-term pregnancy; O69.1XX1 Labor and delivery complicated by cord around neck, with compression, fetus 1; Z37.0 Single live birth; O70.1 Second degree perineal laceration during delivery